=== PATIENT | male | born 1945 | race African-American/Black ===

== ENCOUNTER 2019-04-06 05:41 | Inpatient (IN) | payer OTHER ==
[~2019-04-06] VITALS: Ht 177.8 cm; Wt 108.9 kg
[2019-04-06] VITALS (30 sets, daily range): BP systolic 84–168; BP diastolic 51–90; PULSE 83–113; RESP 10–24; Ht 177.8 cm; Wt 108.9 kg
[~2019-04-06 05:41] MED LIST: HIP PAIN COCKTAIL VANCO INJ SCH
[2019-04-06] MEDS ORDERED: LACTATED RINGER'S 1,000 ML IV SCH (06:00)
[2019-04-06] MEDS ORDERED: CEFAZOLIN 1 GM/50 ML (PMX) 50 ML IVPB SCH (06:00)
--- NOTE | 2019-04-06 06:33 | HPN ---
Date/Time of Note Date/Time of Note DATE: 04/06/19 TIME: 06:32 Interval H&P Admission Note Pt. seen H&P reviewed: No system changes INDIGO CALVILLO MD Apr 06, 2019 06:33
[2019-04-06] MEDS ORDERED: POLYMYXIN B 500000 UNIT INJ ONE (07:11)
[2019-04-06] MEDS ORDERED: TOF50 PO (07:14)
[2019-04-06] MEDS ORDERED: ERGO2000 PO (07:16)
[2019-04-06] MEDS ORDERED: MELO15TA30 PO (07:16)
[2019-04-06] MEDS ORDERED: AMLO5TAB4 PO (07:17)
[2019-04-06] MEDS ORDERED: SEVOFLURANE 15 MIN ONE (07:30)
[2019-04-06] MEDS ORDERED: LANSOPRAZOLE 30 MG CAP PO ONE (07:30)
[2019-04-06] MEDS ORDERED: DEXAMETHASONE 4 MG/ML 1 ML INJ IV ONE (07:30)
[2019-04-06] MEDS ORDERED: TRANEXAMIC ACID 1GM/100ML(PMX) 100 ML PRE-OP X1 IVPB ONE (07:30)
[2019-04-06] MEDS ORDERED: oxyCODONE (CR) 10 MG TAB [oxyCONTIN] PO ONE (07:30)
[2019-04-06] MEDS ORDERED: TRANEXAMIC ACID 1GM/100ML(PMX) 100 ML INTRA-OP X1 IVPB ONE (07:30)
[2019-04-06] MEDS ORDERED: ACETAMINOPHEN 500 MG TAB PO ONE (07:30)
[2019-04-06] MEDS ORDERED: ONDANSETRON 4 MG INJ IV ONE (07:30)
--- NOTE | 2019-04-06 07:30 | PREAC ---
Date/Time of Note Date/Time of Note DATE: 04/06/19 TIME: 07:27 Anesthesia Eval and Record Evaluation Time Pre-Procedure Interview DATE: 04/06/19 TIME: 07:27 Age 74 Sex male NPO: 8 hrs Preoperative diagnosis Right Hip OA Planned procedure Right Total Hip Replacement Past Medical History Past Medical History: Includes Cardio: HTN, Dyslipidemia Pulm: Smoking Hx GI: Obesity Heme: Anemia Infection(s): Hep C (treated) Recreational drugs: Marijuana Surgery & Anesthesia Issues No known issue Meds Anticoagulation: No Beta Dat within 24 hr: No Reason Beta Dat not given: Pt. not on B-Dat Reported Medications Amlodipine Besylate* (Norvasc*) 5 Mg Tablet, 5 MG PO DAILY, TAB 04/06/19 Meloxicam* (Mobic*) 15 Mg Tablet, 15 MG PO DAILY, #30 TAB 04/06/19 Ergocalciferol (Vitamin D2) (VITAMIN D2) 2,000 Unit Tablet, 2000 UNIT PO DAILY, TAB 04/06/19 Imipramine Hcl* (Imipramine Hcl*) 50 Mg Tablet, 50 MG PO HS, TAB 04/06/19 Current Medications Lactated Ringer's 1,000 ml @ 125 mls/hr Q8H IV Last administered on 04/06/19at 07:17; Admin Dose 125 MLS/HR; Start 04/06/19 at 06:00; Stop 04/06/19 at 13:59 Cefazolin Sodium 50 ml @ 100 mls/hr PREOP IVPB ; Start 04/06/19 at 06:00; Stop 04/06/19 at 19:00 Ropivacaine/ Morphine Sulfate/ Clonidine/ Epinephrine/ Ketorolac Tromethamine/ Vancomycin HCl/ Sodium Chloride INTRA-OP INJ ; Start 04/05/19 at 15:00 Tranexamic Acid 100 ml @ 220 mls/hr PRE-OP ONCE IVPB ; Start 04/06/19 at 07:30; Stop 04/06/19 at 07:57 Tranexamic Acid 100 ml @ 200 mls/hr INTRA-OP ONCE IVPB ; Start 04/06/19 at 07:30; Stop 04/06/19 at 07:59 Oxycodone HCl (Oxycontin) 10 mg PRE-OP ONCE PO Last administered on 04/06/19at 07:17; Admin Dose 10 MG; Start 04/06/19 at 07:30; Stop 04/06/19 at 07:31 Acetaminophen (Tylenol Tab) 1,000 mg PRE-OP ONCE PO Last administered on 04/06/19at 07:18; Admin Dose 1,000 MG; Start 04/06/19 at 07:30; Stop 04/06/19 at 07:31 Lansoprazole (Prevacid) 30 mg PRE-OP ONCE PO Last administered on 04/06/19at 07:17; Admin Dose 30 MG; Start 04/06/19 at 07:30; Stop 04/06/19 at 07:31 Ondansetron HCl (Zofran Inj) 4 mg PRE-OP ONCE IV Last administered on 04/06/19at 07:17; Admin Dose 4 MG; Start 04/06/19 at 07:30; Stop 04/06/19 at 07:31 Dexamethasone (Decadron) 8 mg PRE-OP ONCE IV Last administered on 04/06/19at 07:18; Admin Dose 8 MG; Start 04/06/19 at 07:30; Stop 04/06/19 at 07:31 Meds reviewed: Yes Allergies Coded Allergies: No Known Allergy (Unverified , 04/06/19) Allergies Reviewed: Yes Labs/Studies Labs Reviewed: Reviewed by anesthesiologist test: N/A Studies: ECG (NSR), CXR (no acute disease) Pre-procedure Exam Airway: Adequate mouth opening, Adequate thyromental dist Mallampati: Mallampati II Teeth: Normal Lung: Normal Heart: Normal ASA Physical Status ASA physical status: 3 Emergency: None Planned Anesthetic General/MAC: ETT, LMA Neuraxial: Spinal Nerve block: Other (Right Fascia Iliaca) Planned Pain Management Sub-arachniod narcotics, Single shot nerve block, Parenteral pain med Pre-operative Attestations Prior to commencing anesthesia and surgery, the patient was re-evaluated, there was verification of: *The patient's identity *The results of appropriate recent lab work and preoperative vital signs *The above evaluation not changing prior to induction *Anesthetic plan, risk benefits, alternative and complications discussed with patient/family; questions answered; patient/family understands, accepts and wishes to proceed. MYRIAM PEARSON MD Apr 06, 2019 07:30
[2019-04-06] MEDS ORDERED: MIDAZOLAM 1 MG/ML 2 ML INJ ONE (07:34)
[2019-04-06] MEDS ORDERED: PROPOFOL 20 ML ONE (07:34)
[2019-04-06] MEDS ORDERED: morphine SULFATE/PF (10 MG/10 ML) INJ ONE (07:34)
[2019-04-06] MEDS ORDERED: ROCURONIUM 50 MG INJ ONE (07:34)
[2019-04-06] MEDS ORDERED: ROPIVACAINE 0.5 % 30 ML VIAL ONE (07:34)
[2019-04-06] MEDS ORDERED: TRANEXAMIC ACID 1GM/100ML(PMX) 200 ML ONE (08:36)
[2019-04-06] MEDS ORDERED: BACITRACIN 50000 UNITS INJ IRR ONE (09:01)
[2019-04-06] MEDS ORDERED: DEXAMETHASONE 4 MG/ML 5 ML INJ ONE (09:44)
[2019-04-06] MEDS ORDERED: METOCLOPRAMIDE 10 MG INJ ONE (09:44)
[2019-04-06] MEDS ORDERED: SUGAMMADEX SODIUM 200 MG/2 ML VIAL IV ONE ×2 (09:44→11:00)
[2019-04-06] MEDS ORDERED: KETOROLAC 30 MG INJ ONE (09:44)
[2019-04-06] MEDS ORDERED: CEFAZOLIN 1 GM INJ ONE (09:44)
[2019-04-06] MEDS ORDERED: ONDANSETRON 4 MG INJ ONE (09:44)
[2019-04-06] MEDS ORDERED: PHENYLephrine (100 MCG/ML) 10ML SYG ONE (09:45)
[2019-04-06] MEDS ORDERED: HETASTARCH 6% NACL 500 ML ONE (09:49)
[2019-04-06] MEDS ORDERED: ONDANSETRON 4 MG INJ IV PRN ×2 (10:00)
[2019-04-06] MEDS ORDERED: FENTAnyl 50 MCG/ML VIAL IV PRN ×2 (10:00)
[2019-04-06] MEDS ORDERED: LABETALOL HCL 20MG INJ IV PRN (10:00)
[2019-04-06] MEDS ORDERED: MEPERIDINE 25 MG INJ IV PRN (10:00)
[2019-04-06] MEDS ORDERED: HYDROCODONE/APAP (5/325) TAB PO PRN (10:00)
[2019-04-06] MEDS ORDERED: HYDROmorphONE 1 MG/5 ML IV SYRINGE IV PRN ×2 (10:00)
[2019-04-06] MEDS ORDERED: DIPHENHYDRAMINE 50 MG INJ IV PRN ×2 (10:00)
[2019-04-06] MEDS ORDERED: OXYCODONE/ACETAMINOPHEN (5/325) TAB PO PRN ×2 (10:00)
[2019-04-06] MEDS ORDERED: METOCLOPRAMIDE 10 MG INJ IV PRN (10:00)
[2019-04-06] MEDS ORDERED: KETOROLAC 30 MG INJ IV PRN (10:00)
[2019-04-06] MEDS ORDERED: NALBUPHINE HCL (10 MG/1 ML) INJ IV PRN (10:00)
[2019-04-06] MEDS ORDERED: NALOXONE (0.4 MG/ML) INJ IV PRN ×2 (10:00→11:30)
[2019-04-06] MEDS ORDERED: morphine 2 MG INJ IV PRN ×2 (10:00)
[2019-04-06] MEDS ORDERED: EPHEDrine 25 MG/5 ML SYG IV PRN (10:00)
[2019-04-06] MEDS ORDERED: ALBUMIN HUMAN 5% 250 ML IV PRN (10:00)
[2019-04-06] MEDS ORDERED: ACETAMINOPHEN 500 MG TAB PO PRN (10:00)
[2019-04-06] MEDS ORDERED: HYDROmorphONE 0.5 MG/0.5 ML SYG IV PRN ×2 (10:00)
[2019-04-06] MEDS ORDERED: hydrALAzine 20 MG INJ IV PRN (10:00)
--- NOTE | 2019-04-06 11:04 | SIPON ---
Date/Time of Note Date/Time of Note DATE: 04/06/19 TIME: 11:03 Operative Report Preoperative Diagnosis Right Hip Osteoarthritis Postoperative Diagnosis Same Operation/Procedure Performed Right Total Hip Arthroplasty Surgeon Ryan Dunbar MD education assistant MALI Dunn Anesthesia: spinal Estimated blood loss: other Transfusion Required none Specimen Bone Grafts/Implants none Complications none RYAN DUNBAR MD Apr 06, 2019 11:04
[2019-04-06] MEDS ORDERED: NA PHOSPHATE/BIPHOS 133 ML ENEMA PR PRN (11:30)
[2019-04-06] MEDS ORDERED: oxyCODONE 5 MG TAB PO PRN (11:30)
[2019-04-06] MEDS ORDERED: BISACODYL 10 MG SUPP PR PRN (11:30)
[2019-04-06] MEDS ORDERED: DOCUSATE SODIUM 100 MG CAP PO ONE (11:30)
[2019-04-06] MEDS ORDERED: SENNA/DOCUSATE NA (8.6MG/50MG) TAB PO PRN (11:30)
[2019-04-06] MEDS ORDERED: KETOROLAC 15 MG INJ IV PRN (11:30)
[2019-04-06] MEDS ORDERED: MAGNESIUM HYDROXIDE 30ML CUP PO PRN (11:30)
[2019-04-06] MEDS ORDERED: NACL 0.9% 3 ML SYG IV SCH (11:30)
[2019-04-06] MEDS: CEFAZOLIN 2 GM/50 ML (PMX) 50 ML IVPB SCH ×2 (11:30→19:40)
--- NOTE | 2019-04-06 11:38 | PAC ---
Date/Time of Note Date/Time of Note DATE: 04/06/19 TIME: 11:38 Post-Anesthesia Notes Post-Anesthesia Note Last documented vital signs Vital Signs Date Temp Pulse Resp B/P (MAP) Pulse Ox O2 O2 Flow FiO2 Time Delivery Rate 04/06/19 98.6 83 18 168/81 98 Room Air 11:38 (110) Activity: WNL Respiratory function: WNL Cardiovascular function: WNL Mental status: Baseline Pain reasonably controlled: Yes Hydration appropriate: Yes Nausea/Vomiting absent: Yes MYRIAM PEARSON MD Apr 06, 2019 11:38
[2019-04-06] MEDS: GABAPENTIN 100 MG CAP PO SCH ×2 (13:00→20:23)
--- NOTE | 2019-04-06 13:03 | CONS ---
Assessment/Plan Assessment/Plan Hospital Course (Demo Recall) 74-year-old male with comorbidities including obesity, hypertension, insomnia, and right hip osteoarthritis who underwent a right total hip arthroplasty on 04/06/2019. 1. Right hip osteoarthritis. Status post right total hip arthroplasty on 04/06/2019. Postoperative day #0. Pain management as per orthopedic surgery. Weightbearing and physical therapy as per orthopedic surgery. Anticoagulation as per orthopedic surgery. 2. Hypertension. Resume calcium channel blockers. 3. Insomnia. Resume scheduled tricyclics. 4. Obesity. BMI more than 34 kg/m. Will advise lifestyle changes. CODE STATUS: Full code. Diet: Regular diet DVT prophylaxis: As per orthopedic surgery. We will continue to follow the patient along with you. Thank you for the consult. The patient was seen in collaboration with Dr. Tee. Consultation Date/Type/Reason Admit Date/Time Apr 06, 2019 at 05:41 Date of Consultation: Apr 06, 2019 Type of Consult Medical. Reason for Consultation Medical management. Requesting Provider: INDIGO CALVILLO MD Date/Time of Note DATE: 04/06/19 TIME: 13:03 Hx of Present Illness This is a 74-year-old -[place] male with past medical history of hypertension, insomnia, and right hip osteoarthritis. The patient was brought to [facility] for elective right total hip arthroplasty. The patient underwent the surgery without any complications. The patient is being hospitalized for further monitoring. Hospitalist consult was obtained for medical management. Constitutional: no complaints Eyes: no complaints ENT: no complaints Respiratory: no complaints Cardiovascular: no complaints Gastrointestinal: no complaints Genitourinary: no complaints Musculoskeletal: bone/joint pain Skin: no complaints Neurologic: no complaints Endocrine: no complaints Lymphatic: no complaints Psychological: other (Insomnia) Immunologic: no complaints Past Medical History 1. HTN. 2. Insomnia. 3. Osteoarthritis. 4. Obesity. Home Meds Reported Medications Amlodipine Besylate* (Norvasc*) 5 Mg Tablet, 5 MG PO DAILY, TAB 04/06/19 Meloxicam* (Mobic*) 15 Mg Tablet, 15 MG PO DAILY, #30 TAB 04/06/19 Ergocalciferol (Vitamin D2) (VITAMIN D2) 2,000 Unit Tablet, 2000 UNIT PO DAILY, TAB 04/06/19 Imipramine Hcl* (Imipramine Hcl*) 50 Mg Tablet, 50 MG PO HS, TAB 04/06/19 Medications Allergies: Coded Allergies: No Known Allergy (Unverified , 04/06/19) Past Surgical History 1. Prostate surgery. Social History Lives with his family Alcohol Use: none Smoking Status: Never smoker Drug Use: none Exam/Review of Systems Exam Vitals Vital Signs Date Temp Pulse Resp B/P (MAP) Pulse Ox O2 O2 Flow FiO2 Time Delivery Rate 04/06/19 98.6 12:55 04/06/19 98 10 119/64 96 Nasal 12:42 (82) Cannula 04/06/19 3.0 12:37 Exam General: Obese, 74 year-old male lying in bed in no apparent distress. HEENT: Normocephalic, atraumatic. Eyes: Anicteric sclerae, conjunctivae clear. ENT: Nasal septum midline, oral mucosa is dry. Neck supple. Respiratory: Bilaterally diminished breath sounds. No use of accessory muscles of respiration. No adventitious breath sounds. Cardiovascular: S1, S2 heard. Regular rate and rhythm. Abdomen: Soft, nontender, and nondistended. Bowel sounds positive in all 4 quadrants. Genitourinary: Deferred. Extremities: No cyanosis, no clubbing, no edema. Peripheral pulses palpable. Right hip surgical dressing. Neurologic: Cranial nerves II through XII grossly intact. The patient is awake, alert, and oriented. Skin: Normal skin turgor. No skin rashes. Constitutional: oriented, well developed Medications Medication Current Medications Lactated Ringer's 1,000 ml @ 125 mls/hr Q8H IV Last administered on 04/06/19at 07:17; Admin Dose 125 MLS/HR; Start 04/06/19 at 06:00; Stop 04/06/19 at 13:59 Cefazolin Sodium 50 ml @ 100 mls/hr PREOP IVPB ; Start 04/06/19 at 06:00; Stop 04/06/19 at 19:00 Ropivacaine/ Morphine Sulfate/ Clonidine/ Epinephrine/ Ketorolac Tromethamine/ Vancomycin HCl/ Sodium Chloride INTRA-OP INJ Last administered on 04/06/19at 09:01; Admin Dose 116.3 ML; Start 04/05/19 at 15:00; Stop 04/06/19 at 16:00 Hydromorphone HCl (Dilaudid) 0.2 mg Q2H PRN IV .PAIN 1-5; Start 04/06/19 at 10:00 Hydromorphone HCl (Dilaudid) 0.4 mg Q2H PRN IV .PAIN 6-10; Start 04/06/19 at 10:00 Morphine Sulfate (morphine) 2 mg Q2H PRN IV .PAIN 1-5; Start 04/06/19 at 10:00 Morphine Sulfate (morphine) 4 mg Q2H PRN IV .PAIN 6-10; Start 04/06/19 at 10:00 Ketorolac Tromethamine (Toradol) 30 mg Q6H PRN IV .PAIN 6-10; Start 04/06/19 at 10:00; Stop 04/09/19 at 09:59 Acetaminophen (Tylenol Tab) 500 mg Q4H PRN PO .PAIN 1-3; Start 04/06/19 at 10:00 Acetaminophen/ Hydrocodone Bitart ([place] (5/325)) 1 tab Q4H PRN PO .PAIN 4-6; Start 04/06/19 at 10:00 Diphenhydramine HCl (Benadryl) 25 mg Q4H PRN IV .PRURITUS; Start 04/06/19 at 10:00 Nalbuphine HCl (Nubain) 10 mg Q4H PRN IV .PRURITUS; Start 04/06/19 at 10:00 Ondansetron HCl (Zofran Inj) 4 mg Q6H PRN IV .NAUSEA/VOMITING; Start 04/06/19 at 10:00 Naloxone HCl (Narcan) 0.2 mg Q2M PRN IV .RESP RATE; Start 04/06/19 at 10:00 Miscellaneous Information (* Miscellaneous Pharmacy Order) DURAMORPH: 0.1 MG SPI... GIVEN NEURAXIAL XX ; Start 04/06/19 at 10:00 Hydromorphone HCl (Dilaudid) 0.2 mg PACU PRN IV MILD PAIN 1-3; Start 04/06/19 at 10:00; Stop 04/06/19 at 15:00 Hydromorphone HCl (Dilaudid) 0.4 mg PACU PRN IV MOD PAIN 4-6; Start 04/06/19 at 10:00; Stop 04/06/19 at 15:00 Fentanyl (Sublimaze) 25 mcg PACU ORDER PRN IV MILD PAIN 1-3; Start 04/06/19 at 10:00; Stop 04/06/19 at 15:00 Fentanyl (Sublimaze) 50 mcg PACU ORDER PRN IV MOD PAIN 4-6; Start 04/06/19 at 10:00; Stop 04/06/19 at 15:00 Oxycodone/ Acetaminophen (Percocet (5/ 325)) 1 tab PACU ORDER PRN PO .PAIN 1-5; Start 04/06/19 at 10:00; Stop 04/06/19 at 15:00 Oxycodone/ Acetaminophen (Percocet (5/ 325)) 2 tab PACU ORDER PRN PO .PAIN 6-10; Start 04/06/19 at 10:00; Stop 04/06/19 at 15:00 Ondansetron HCl (Zofran Inj) 4 mg PACU ORDER PRN IV NAUSEA/VOMITING; Start 04/06/19 at 10:00; Stop 04/06/19 at 15:00 Metoclopramide HCl (Reglan) 10 mg PACU ORDER PRN IV NAUSEA/VOMITING; Start 04/06/19 at 10:00; Stop 04/06/19 at 15:00 Labetalol HCl (Labetalol) 5 mg PACU ORDER PRN IV HIGH BLOOD PRESSURE; Start 04/06/19 at 10:00; Stop 04/06/19 at 17:00 Hydralazine HCl (Apresoline) 5 mg PACU ORDER PRN IV HIGH BLOOD PRESSURE; Start 04/06/19 at 10:00; Stop 04/06/19 at 15:00 Ephedrine Sulfate 5 mg PACU ORDER PRN IV BLOOD PRESSURE SUPPORT; Start 04/06/19 at 10:00; Stop 04/06/19 at 15:00 Albumin Human 250 ml @ 750 mls/hr PACU ORDER PRN IV BP SUPPORT; Start 04/06/19 at 10:00; Stop 04/06/19 at 15:00 Meperidine HCl (Demerol) 25 mg PACU ORDER PRN IV .RIGORS; Start 04/06/19 at 10:00; Stop 04/06/19 at 15:00 Diphenhydramine HCl (Benadryl) 25 mg PACU ORDER PRN IV .PRURITUS; Start 04/06/19 at 10:00; Stop 04/06/19 at 15:00 Oxycodone HCl (Roxicodone) 5 mg Q4H PRN PO .PAIN; Start 04/06/19 at 11:30 Ondansetron HCl (Zofran Inj) 4 mg Q4H PRN IV NAUSEA/VOMITING; Start 04/07/19 at 11:30 Cefazolin Sodium/ Dextrose 50 ml @ 100 mls/hr Q8H IVPB Last administered on 04/06/19at 11:30; Admin Dose 100 MLS/HR; Start 04/06/19 at 11:30; Stop 04/07/19 at 03:59 Celecoxib (Celebrex) 100 mg BID PO ; Start 04/07/19 at 09:00 Gabapentin (Neurontin) 100 mg TID PO ; Start 04/06/19 at 13:00 Pantoprazole (Protonix Tab) 40 mg DAILY@06 PO ; Start 04/07/19 at 06:00 Docusate Sodium (Colace) 200 mg BID PO ; Start 04/07/19 at 09:00; Stop 04/09/19 at 21:01 Simethicone (Mylicon) 80 mg TID PRN PO .GAS; Start 04/06/19 at 11:30 Senna/Docusate Sodium (Senokot-S) 2 tab BID PRN PO .CONSTIPATION; Start 04/06/19 at 11:30 Magnesium Hydroxide (Milk Of Mag) 30 ml HS PRN PO .CONSTIPATION; Start 04/06/19 at 11:30 Bisacodyl (Dulcolax Supp) 10 mg DAILY PRN [place] .CONSTIPATION; Start 04/06/19 at 11:30 Sodium Biphosphate/ Sodium Phosphate (Fleet Enema) 133 ml DAILY PRN [place] .CONSTIPATION; Start 04/06/19 at 11:30 Ketorolac Tromethamine (Toradol) 15 mg Q6H PRN IV .PAIN; Start 04/06/19 at 11:30 Naloxone HCl (Narcan) 0.2 mg Q2M PRN IV .RESP RATE; Start 04/06/19 at 11:30 IV Flush (NS 3 ml) 3 ml per protocol IV ; Start 04/06/19 at 11:30 Aspirin (Halfprin) 81 mg BID PO ; Start 04/07/19 at 09:00 HONEY MADRID NP Apr 06, 2019 13:03
--- NOTE | 2019-04-06 14:21 | OPR ---
Date/Time of Note Date/Time of Note DATE: 04/06/19 TIME: 14:18 Operative Report Free Text/Dictation DATE OF OPERATION: April 06, 2019 PREOPERATIVE DIAGNOSIS: Right hip osteoarthritis. POSTOPERATIVE DIAGNOSIS: Right hip osteoarthritis. PROCEDURES PERFORMED: 1. Right total hip arthroplasty. CPT code 27157. 2. Computer assisted navigational procedure, CPT code 73552. 3. Interpretation of AP Pelvis x-ray. 4. Interpretation of right hip, 2 views. SURGEON: Indigo Dunbar. COMPLAINT ADJUSTER: 1. MALI Dunn ANESTHESIOLOGIST: Dr. Bryant ANESTHESIA: Spinal ESTIMATED BLOOD LOSS: 300 mL. COMPLICATIONS: None. SPECIMENS: Resected bone. DISPOSITION: PACU in stable condition. IMPLANT USED: A DePuy Corail size 12 standard stem, 36/+1.5 delta ceramic femoral head, 56mm Atlantic Cup, 36 mm liner, 20 mm cancellous screw. COMPLICATIONS: None. DISPOSITION: To PACU in stable condition. INDICATION FOR PROCEDURE: This is an 74 year-old male with endstage osteoarthritis of the right hip who had failed nonoperative management. Risks, benefits, alternatives of surgical intervention were discussed with the patient and informed consent was obtained. The risks of surgery include but are not limited to infection, deep venous thrombosis, pulmonary embolism, leg length discrepancy, fracture, damage to neurovascular structures requiring repair, loosening of the prosthesis, wear of prosthesis, need for revision surgery, heart attack, stroke, need for blood transfusion, risks associated with anesthesia and even . DESCRIPTION OF PROCEDURE: The patient was met in the preoperative suite and the correct operative site was confirmed and marked. Patient was then brought into operating room. After induction of general anesthesia, the patient was placed in the supine position on the table. The right lower extremity was prepped and draped in the usual sterile fashion. Before starting, a timeout was taken to identify the correct operative site, the patients name and medical record number and to confirm the preoperative antibiotics consisting of 1 gram of IV Ancef, along with 1 gram of tranexamic acid were administered. At this point, an 8 cm incision was made approximately 2 cm lateral and 1 cm distal to the ASIS. The incision was carried down to the fascia. The fascia was then incised. Then, 2 Allis clamps were placed. The interval was then bluntly developed and the tensor fascia jesus was then retracted laterally. The lateral circumflex vessels were identified and coagulated. The anterior capsule was then visualized and a capsulotomy was performed. At this point, markings were made for the napkin ring osteotomy of the femoral neck. Using the saw the initial osteotomy was then made and completed with the use of an osteotome. A Lovely was then used to remove the napkin ring and a corkscrew was then placed in the femoral head and the head was then removed. The head was sized to 54 mm. Sequential reaming was begun with a 47 mm reamer, going up to a 55 mm reamer. A trial 56 mm cup was then impacted and the radlink was then used to determine the appropriate anteversion and abduction of the cup. The cup was noted to be in approximately 44 degrees of inclination, and 19 degrees of anteversion. The trial was then removed. The appropriate size cup was then placed and again the radlink was used to determine the inclination and anteversion, and was noted be unchanged. At this point, a 20 mm screw was then placed in the posterior superior quadrant. The 36 mm liner was then impacted into place and the final acetabular x-rays were taken which again demonstrated the cup to be in appropriate abduction and anteversion. At this point, the femoral lift was then used and the leg was then placed in external rotation, extension, and adduction. Retractors were placed and the femoral releases were performed using a box osteotome followed by a canal finder. Sequential broaching was begun with a 8 broach going up to a size 12 broach. The trial 12 mm standard offset stem along with a 36/+1.5 trial head and neck were placed. The hip was then reduced and taken through range of motion, noted to be stable in extension and external rotation of up to 110 degrees. AP x-rays of the pelvis and right hip, 2 view x-rays were taken. The x-rays demonstrated the prosthesis to be in the correct position with equal leg l engths. The trial components were then removed. The appropriate sized components were then placed. The hip was again reduced with unchanged stability and equal leg lengths and no fractures were seen. The hip was again taken through range of motion and noted to be stable to extension and external rotation. The wound was then thoroughly irrigated. The capsule and the fascia were closed using #1 Stratafix. The subcutaneous tissue was closed using 2-0 Vicryl and the skin with 4-0 Monocryl in subcuticular fashion and Steri-Strips were applied. There were no complications. Patient was awakened and taken to postoperative care unit in stable condition. Prior to transfer, the patient was noted to have equal leg lengths and a palpable dorsalis pedis pulse. POSTOPERATIVE CARE: Patient will be weightbearing as tolerated. Patient will work with physical therapy, and receive multimodal pain management.. Patient will receive two additional doses of IV Ancef along with aspirin 81 mg p.o. b.i.d. for 6 weeks. Patient will have SCDs while in the hospital. Upon discharge, patient will follow up in my office within 2 weeks postoperatively. INDIGO DUNBAR MD Apr 06, 2019 14:21
[2019-04-06] MEDS ORDERED: SOD CHLORIDE 0.9% 1,000 ML IV ONE (16:00)
[2019-04-06] MEDS: IMIPRAMINE 25 MG TAB PO SCH (20:23)
[2019-04-07 02:48] VITALS: BP 130/70; PULSE 92; RESP 12
[2019-04-07] MEDS: CEFAZOLIN 2 GM/50 ML (PMX) 50 ML IVPB SCH (03:55)
[2019-04-07] MEDS: PANTOPRAZOLE (EC) 40 MG TAB PO SCH (05:26)
[2019-04-07 07:36] VITALS: BP 104/59; PULSE 102; RESP 18
[2019-04-07] MEDS: AMLODIPINE 5 MG TAB PO SCH (09:00)
[2019-04-07] MEDS: DOCUSATE SODIUM 100 MG CAP PO SCH ×2 (09:06→21:54)
[2019-04-07] MEDS: CELECOXIB 100 MG CAP PO SCH ×2 (09:06→21:54)
[2019-04-07] MEDS: ASPIRIN (EC) 81 MG TAB PO SCH ×2 (09:06→21:54)
[2019-04-07] MEDS: GABAPENTIN 100 MG CAP PO SCH ×3 (09:06→21:54)
--- NOTE | 2019-04-07 09:58 | CONS ---
Assessment/Plan Assessment/Plan Hospital Course (Demo Recall) SUBJECTIVE: Continues to have minimal right hip pain. Had some difficulty in urination yesterday. Currently denies any problems urination. OBJECTIVE: Physical Exam General: Obese, 74 year-old male lying in bed in no apparent distress. HEENT: Normocephalic, atraumatic. Eyes: Anicteric sclerae, conjunctivae clear. ENT: Nasal septum midline, oral mucosa is dry. Neck supple. Respiratory: Bilaterally diminished breath sounds. No use of accessory muscles of respiration. No adventitious breath sounds. Cardiovascular: S1, S2 heard. Regular rate and rhythm. Abdomen: Soft, nontender, and nondistended. Bowel sounds positive in all 4 quadrants. Genitourinary: Deferred. Extremities: No cyanosis, no clubbing, no edema. Peripheral pulses palpable. Right hip surgical dressing. Neurologic: Cranial nerves II through XII grossly intact. The patient is awake, alert, and oriented. Skin: Normal skin turgor. No skin rashes. Labs & Vitals per chart ASSESSMENT & PLAN 74-year-old male with comorbidities including obesity, hypertension, insomnia, and right hip osteoarthritis who underwent a right total hip arthroplasty on 04/06/2019. 1. Right hip osteoarthritis. Status post right total hip arthroplasty on 04/06/2019. Postoperative day #1. Pain management as per orthopedic surgery. Weightbearing and physical therapy as per orthopedic surgery. Anticoagulation as per orthopedic surgery. 2. Hypertension. Continue calcium channel blockers. 3. Insomnia. Continue scheduled tricyclics. 4. Normocytic anemia. Etiology unclear. Monitor H&H closely. Blood transfusion will be deferred to orthopedic surgery. 5. Sinus tachycardia. Etiology could be multifactorial including underlying pain and anemia. Monitor. 6. Obesity. BMI more than 34 kg/m. Advised lifestyle changes. CODE STATUS: Full code. Diet: Regular diet DVT prophylaxis: As per orthopedic surgery. We will continue to follow the patient along with you. Thank you for the consult. The patient was seen in collaboration with Dr. Tee. Consultation Date/Type/Reason Admit Date/Time Apr 06, 2019 at 05:41 Initial Consult Date 04/06/19 Type of Consult Medical. Reason for Consultation Medical Management. Requesting Provider: INDIGO CALVILLO MD Date/Time of Note DATE: 04/07/19 TIME: 09:54 Exam/Review of Systems Exam Vitals Vital Signs Date Temp Pulse Resp B/P (MAP) Pulse Ox O2 O2 Flow FiO2 Time Delivery Rate 04/07/19 97.6 102 18 104/59 93 Nasal 07:36 (74) Cannula 04/07/19 3.0 02:48 Intake and Output 04/06/19 04/06/19 04/07/19 1515:00 23:00 07:00 IntakeIntake Total 2000 ml 600 ml 290 ml OutputOutput Total 200 ml 467 ml 900 ml BalanceBalance 1800 ml 133 ml -610 ml Results Result Diagram: 04/07/19 0431 04/07/19 0431 Results 24hrs Laboratory Tests Test 04/07/19 04:31 04/07/19 06:59 White Blood Count 13.7 H Red Blood Count 2.66 L Hemoglobin 7.5 L Hematocrit 23.9 L Mean Corpuscular Volume 89.8 Mean Corpuscular Hemoglobin 28.2 L Mean Corpuscular Hemoglobin Concent 31.4 L Red Cell Distribution Width 16.6 H Platelet Count 152 Mean Platelet Volume 12.0 H Immature Granulocytes % 0.700 H Neutrophils % 79.8 H Lymphocytes % 11.9 L Monocytes % 7.5 Eosinophils % 0.0 Basophils % 0.1 Nucleated Red Blood Cells % 0.0 Immature Granulocytes # 0.100 H Neutrophils # 11.0 H Lymphocytes # 1.6 Monocytes # 1.0 H Eosinophils # 0.0 Basophils # 0.0 Nucleated Red Blood Cells # 0.0 Prothrombin Time 15.6 H Prothrombin Time Ratio 1.2 INR International Normalized Ratio 1.23 Sodium Level 140 Potassium Level 4.5 Chloride Level 108 Carbon Dioxide Level 26 Anion Gap 6 Blood Urea Nitrogen 16 Creatinine 1.08 Est Glomerular Filtrat Rate mL/min Glucose Level 185 Calcium Level 7.7 L Lab Scanned Report REFERENCE LAB Medications Medication Current Medications Hydromorphone HCl (Dilaudid) 0.2 mg Q2H PRN IV .PAIN 1-5; Start 04/06/19 at 10:00 Hydromorphone HCl (Dilaudid) 0.4 mg Q2H PRN IV .PAIN 6-10; Start 04/06/19 at 10:00 Morphine Sulfate (morphine) 2 mg Q2H PRN IV .PAIN 1-5; Start 04/06/19 at 10:00 Morphine Sulfate (morphine) 4 mg Q2H PRN IV .PAIN 6-10; Start 04/06/19 at 10:00 Ketorolac Tromethamine (Toradol) 30 mg Q6H PRN IV .PAIN 6-10; Start 04/06/19 at 10:00; Stop 04/09/19 at 09:59 Acetaminophen (Tylenol Tab) 500 mg Q4H PRN PO .PAIN 1-3; Start 04/06/19 at 10:00 Acetaminophen/ Hydrocodone Bitart ([place] (5/325)) 1 tab Q4H PRN PO .PAIN 4-6 Last administered on 04/06/19at 19:34; Admin Dose 1 TAB; Start 04/06/19 at 10:00 Diphenhydramine HCl (Benadryl) 25 mg Q4H PRN IV .PRURITUS; Start 04/06/19 at 10:00 Nalbuphine HCl (Nubain) 10 mg Q4H PRN IV .PRURITUS; Start 04/06/19 at 10:00 Ondansetron HCl (Zofran Inj) 4 mg Q6H PRN IV .NAUSEA/VOMITING; Start 04/06/19 at 10:00 Naloxone HCl (Narcan) 0.2 mg Q2M PRN IV .RESP RATE; Start 04/06/19 at 10:00 Miscellaneous Information (* Miscellaneous Pharmacy Order) DURAMORPH: 0.1 MG SPI... GIVEN NEURAXIAL XX ; Start 04/06/19 at 10:00 Oxycodone HCl (Roxicodone) 5 mg Q4H PRN PO .PAIN; Start 04/06/19 at 11:30 Ondansetron HCl (Zofran Inj) 4 mg Q4H PRN IV NAUSEA/VOMITING; Start 04/07/19 at 11:30 Celecoxib (Celebrex) 100 mg BID PO Last administered on 04/07/19at 09:06; Admin Dose 100 MG; Start 04/07/19 at 09:00 Gabapentin (Neurontin) 100 mg TID PO Last administered on 04/07/19at 09:06; Admi n Dose 100 MG; Start 04/06/19 at 13:00 Pantoprazole (Protonix Tab) 40 mg DAILY@06 PO Last administered on 04/07/19at 05:26; Admin Dose 40 MG; Start 04/07/19 at 06:00 Docusate Sodium (Colace) 200 mg BID PO Last administered on 04/07/19at 09:06; Admin Dose 200 MG; Start 04/07/19 at 09:00; Stop 04/09/19 at 21:01 Simethicone (Mylicon) 80 mg TID PRN PO .GAS; Start 04/06/19 at 11:30 Senna/Docusate Sodium (Senokot-S) 2 tab BID PRN PO .CONSTIPATION; Start 04/06/19 at 11:30 Magnesium Hydroxide (Milk Of Mag) 30 ml HS PRN PO .CONSTIPATION; Start 04/06/19 at 11:30 Bisacodyl (Dulcolax Supp) 10 mg DAILY PRN [place] .CONSTIPATION; Start 04/06/19 at 11:30 Sodium Biphosphate/ Sodium Phosphate (Fleet Enema) 133 ml DAILY PRN [place] .CONSTIPATION; Start 04/06/19 at 11:30 Ketorolac Tromethamine (Toradol) 15 mg Q6H PRN IV .PAIN; Start 04/06/19 at 11:30 Naloxone HCl (Narcan) 0.2 mg Q2M PRN IV .RESP RATE; Start 04/06/19 at 11:30 IV Flush (NS 3 ml) 3 ml per protocol IV ; Start 04/06/19 at 11:30 Aspirin (Halfprin) 81 mg BID PO Last administered on 04/07/19at 09:06; Admin Dose 81 MG; Start 04/07/19 at 09:00 Amlodipine Besylate (Norvasc) 5 mg DAILY PO ; Start 04/07/19 at 09:00 Imipramine HCl (Tofranil) 50 mg HS PO Last administered on 04/06/19at 20:23; Admin Dose 50 MG; Start 04/06/19 at 21:00 HONEY MADRID NP Apr 07, 2019 09:58
[2019-04-07] MEDS ORDERED: ONDANSETRON 4 MG INJ IV PRN (11:30)
[2019-04-07 12:30] VITALS: BP 112/59; PULSE 109; RESP 19
[2019-04-07] MEDS: HYDROCODONE/APAP (5/325) TAB PO PRN (19:40)
[2019-04-07 20:29] VITALS: BP 101/69; PULSE 111; RESP 20
[2019-04-07] MEDS: IMIPRAMINE 25 MG TAB PO SCH (21:54)
[2019-04-08 02:23] VITALS: BP 108/63; PULSE 100; RESP 17
[2019-04-08] MEDS: HYDROCODONE/APAP (5/325) TAB PO PRN ×3 (04:35→18:32)
[2019-04-08] MEDS: PANTOPRAZOLE (EC) 40 MG TAB PO SCH (06:00)
[2019-04-08 07:28] VITALS: BP 101/68; PULSE 92; RESP 19
[2019-04-08] MEDS: GABAPENTIN 100 MG CAP PO SCH ×2 (08:40→13:50)
[2019-04-08] MEDS: DOCUSATE SODIUM 100 MG CAP PO SCH (08:40)
[2019-04-08] MEDS: AMLODIPINE 5 MG TAB PO SCH (08:40)
[2019-04-08] MEDS: ASPIRIN (EC) 81 MG TAB PO SCH (08:40)
[2019-04-08] MEDS: CELECOXIB 100 MG CAP PO SCH (08:40)
--- NOTE | 2019-04-08 09:53 | CONS ---
Assessment/Plan Assessment/Plan Hospital Course (Demo Recall) SUBJECTIVE: Continues to have minimal right hip pain. OBJECTIVE: Physical Exam General: Obese, 74 year-old male lying in bed in no apparent distress. HEENT: Normocephalic, atraumatic. Eyes: Anicteric sclerae, conjunctivae clear. ENT: Nasal septum midline, oral mucosa is dry. Neck supple. Respiratory: Bilaterally diminished breath sounds. No use of accessory muscles of respiration. No adventitious breath sounds. Cardiovascular: S1, S2 heard. Regular rate and rhythm. Abdomen: Soft, nontender, and nondistended. Bowel sounds positive in all 4 quadrants. Genitourinary: Deferred. Extremities: No cyanosis, no clubbing, no edema. Peripheral pulses palpable. Right hip surgical dressing. Neurologic: Cranial nerves II through XII grossly intact. The patient is awake, alert, and oriented. Skin: Normal skin turgor. No skin rashes. Labs & Vitals per chart ASSESSMENT & PLAN 74-year-old male with comorbidities including obesity, hypertension, insomnia, and right hip osteoarthritis who underwent a right total hip arthroplasty on 04/06/2019. 1. Right hip osteoarthritis. Status post right total hip arthroplasty on 04/06/2019. Postoperative day #2. Pain management as per orthopedic surgery. Weightbearing and physical therapy as per orthopedic surgery. Anticoagulation as per orthopedic surgery. 2. Hypertension. Continue calcium channel blockers. 3. Insomnia. Continue scheduled tricyclics. 4. Normocytic anemia. Etiology unclear. Monitor H&H closely. 1 unit of PRBC transfusion ordered. 5. Sinus tachycardia. Etiology could be multifactorial including underlying pain and anemia. Monitor. 6. Diabetes mellitus type 2. Hemoglobin A1c 6.9 (on blood before the patient received blood transfusion). ?Newly diagnosed. Monitor glycemic trends. 7. Obesity. BMI more than 34 kg/m. Advised lifestyle changes. CODE STATUS: Full code. Diet: Regular diet DVT prophylaxis: As per orthopedic surgery. We will continue to follow the patient along with you. Thank you for the consult. The patient was seen in collaboration with Dr. Tee. Consultation Date/Type/Reason Admit Date/Time Apr 06, 2019 at 05:41 Initial Consult Date 04/06/19 Type of Consult Medical. Reason for Consultation Medical management. Requesting Provider: INDIGO CALVILLO MD Date/Time of Note DATE: 04/08/19 TIME: 09:50 Exam/Review of Systems Exam Vitals Vital Signs Date Temp Pulse Resp B/P (MAP) Pulse Ox O2 O2 Flow FiO2 Time Delivery Rate 04/08/19 98.1 92 19 101/68 98 07:28 (79) 04/08/19 Room Air 02:23 04/07/19 3.0 02:48 Intake and Output 04/07/19 04/07/19 04/08/19 1515:00 23:00 07:00 IntakeIntake Total 540 ml 240 ml 280 ml OutputOutput Total 1200 ml 400 ml 850 ml BalanceBalance -660 ml -160 ml -570 ml Results Result Diagram: 04/08/19 0430 04/08/19 0430 Results 24hrs Laboratory Tests Test 04/08/19 04:30 White Blood Count 11.3 H Red Blood Count 2.36 L Hemoglobin 6.8 *L Hematocrit 21.1 L Mean Corpuscular Volume 89.4 Mean Corpuscular Hemoglobin 28.8 L Mean Corpuscular Hemoglobin Concent 32.2 Red Cell Distribution Width 17.2 H Platelet Count 144 Mean Platelet Volume 12.2 H Immature Granulocytes % 1.200 H Neutrophils % 58.1 Segmented Neutrophils % (Manual) 48 Band Neutrophils % (Manual) 4 Lymphocytes % 31.8 Lymphocytes % (Manual) 40 Reactive Lymphocytes % (Manual) 4 H Monocytes % 8.8 Monocytes % (Manual) 4 Eosinophils % 0.0 Basophils % 0.1 Nucleated Red Blood Cells % 0.0 Immature Granulocytes # 0.140 H Neutrophils # 6.6 Neutrophils # (Manual) 5.5 Band Neutrophils # 0.4 Lymphocytes (Manual) 4.5 H Lymphocytes # 3.6 H Reactive Lymphocytes # 0.4 H Monocytes # 1.0 H Monocytes # (Manual) 0.4 Eosinophils # 0.0 Basophils # 0.0 Nucleated Red Blood Cells # 0.0 Platelet Estimate NORMAL Giant Platelets 2 H Polychromasia 1+ Anisocytosis 1+ Prothrombin Time 14.5 Prothrombin Time Ratio 1.1 INR International Normalized Ratio 1.12 Sodium Level 138 Potassium Level 3.9 Chloride Level 106 Carbon Dioxide Level 29 Anion Gap 3 L Blood Urea Nitrogen 18 Creatinine 1.01 Est Glomerular Filtrat Rate mL/min Glucose Level 151 Calcium Level 8.3 L Medications Medication Current Medications Hydromorphone HCl (Dilaudid) 0.2 mg Q2H PRN IV .PAIN 1-5; Start 04/06/19 at 10:00 Hydromorphone HCl (Dilaudid) 0.4 mg Q2H PRN IV .PAIN 6-10; Start 04/06/19 at 10:00 Morphine Sulfate (morphine) 2 mg Q2H PRN IV .PAIN 1-5; Start 04/06/19 at 10:00 Morphine Sulfate (morphine) 4 mg Q2H PRN IV .PAIN 6-10; Start 04/06/19 at 10:00 Ketorolac Tromethamine (Toradol) 30 mg Q6H PRN IV .PAIN 6-10; Start 04/06/19 at 10:00; Stop 04/09/19 at 09:59 Acetaminophen (Tylenol Tab) 500 mg Q4H PRN PO .PAIN 1-3; Start 04/06/19 at 10:00 Acetaminophen/ Hydrocodone Bitart ([place] (5/325)) 1 tab Q4H PRN PO .PAIN 4-6 Last administered on 04/06/19at 19:34; Admin Dose 1 TAB; Start 04/06/19 at 10:00 Diphenhydramine HCl (Benadryl) 25 mg Q4H PRN IV .PRURITUS; Start 04/06/19 at 10:00 Nalbuphine HCl (Nubain) 10 mg Q4H PRN IV .PRURITUS; Start 04/06/19 at 10:00 Ondansetron HCl (Zofran Inj) 4 mg Q6H PRN IV .NAUSEA/VOMITING; Start 04/06/19 at 10:00 Naloxone HCl (Narcan) 0.2 mg Q2M PRN IV .RESP RATE; Start 04/06/19 at 10:00 Miscellaneous Information (* Miscellaneous Pharmacy Order) DURAMORPH: 0.1 MG SPI... GIVEN NEURAXIAL XX ; Start 04/06/19 at 10:00 Oxycodone HCl (Roxicodone) 5 mg Q4H PRN PO .PAIN Last administered on 04/07/19at 16:49; Admin Dose 5 MG; Start 04/06/19 at 11:30 Ondansetron HCl (Zofran Inj) 4 mg Q4H PRN IV NAUSEA/VOMITING; Start 04/07/19 at 11:30 Celecoxib (Celebrex) 100 mg BID PO Last administered on 04/08/19 08:40; Admin Dose 100 MG; Start 04/07/19 at 09:00 Gabapentin (Neurontin) 100 mg TID PO Last administered on 04/08/19 08:40; Admin Dose 100 MG; Start 04/06/19 at 13:00 Pantoprazole (Protonix Tab) 40 mg DAILY@06 PO Last administered on 04/07/19 05:26; Admin Dose 40 MG; Start 04/07/19 at 06:00 Docusate Sodium (Colace) 200 mg BID PO Last administered on 04/08/19 08:40; Admin Dose 200 MG; Start 04/07/19 at 09:00; Stop 04/09/19 at 21:01 Simethicone (Mylicon) 80 mg TID PRN PO .GAS; Start 04/06/19 at 11:30 Senna/Docusate Sodium (Senokot-S) 2 tab BID PRN PO .CONSTIPATION; Start 04/06/19 at 11:30 Magnesium Hydroxide (Milk Of Mag) 30 ml HS PRN PO .CONSTIPATION; Start 04/06/19 at 11:30 Bisacodyl (Dulcolax Supp) 10 mg DAILY PRN [place] .CONSTIPATION; Start 04/06/19 at 11:30 Sodium Biphosphate/ Sodium Phosphate (Fleet Enema) 133 ml DAILY PRN [place] .CONSTIPATION; Start 04/06/19 at 11:30 Ketorolac Tromethamine (Toradol) 15 mg Q6H PRN IV .PAIN Last administered on 04/08/19 08:41; Admin Dose 15 MG; Start 04/06/19 at 11:30 Naloxone HCl (Narcan) 0.2 mg Q2M PRN IV .RESP RATE; Start 04/06/19 at 11:30 IV Flush (NS 3 ml) 3 ml per protocol IV ; Start 04/06/19 at 11:30 Aspirin (Halfprin) 81 mg BID PO Last administered on 04/08/19 08:40; Admin Dose 81 MG; Start 04/07/19 at 09:00 Amlodipine Besylate (Norvasc) 5 mg DAILY PO Last administered on 04/08/19 08:40; Admin Dose 5 MG; Start 04/07/19 at 09:00 Imipramine HCl (Tofranil) 50 mg HS PO Last administered on 7/11/19at 21:54; Admin Dose 50 MG; Start 04/06/19 at 21:00 Acetaminophen/ Hydrocodone Bitart ([place] (5/325)) 2 tab Q4H PRN PO PAIN LEVEL 7-10 Last administered on 04/08/19at 09:18; Admin Dose 2 TAB; Start 04/07/19 at 17:00 HONEY MADRID NP Apr 08, 2019 09:53
[2019-04-08] MEDS ORDERED: HYDR-3601 PO (14:14)
[2019-04-08] MEDS ORDERED: ASPI-1044 PO (14:29)
[2019-04-08 15:34] VITALS: BP 11/58; PULSE 88; RESP 20
== END 2019-04-08 19:01 | disposition home or self-care (01) | DRG 470 ==
LOC: REC 05:41 → EDSTATUS 07:30 → MS1 13:10
PROVIDERS: ADMIT Orthopaedic Surgery Adult Reconstructive Orthopaedic Surgery; ATTEND Orthopaedic Surgery Adult Reconstructive Orthopaedic Surgery
PROC: 0SR903Z Replacement of Right Hip Joint with Ceramic Synthetic Substitute, Open Approach (ICD-10-PCS; principal; 2019-04-06 07:30)
DX: M16.11 Unilateral primary osteoarthritis, right hip (principal); I10 Essential (primary) hypertension; E78.5 Hyperlipidemia, unspecified; E66.9 Obesity, unspecified; Z68.34 Body mass index [BMI] 34.0-34.9, adult; Z87.891 Personal history of nicotine dependence; G47.00 Insomnia, unspecified; D64.9 Anemia, unspecified; R00.0 Tachycardia, unspecified
CPT/HCPCS: 36430; 72170; 73500; 73530; 80048; 80061; 82728; 83036; 83540; 85025; 85610; 86644; 86850; 86900; 86901; 86920; 88304; 88311; 97116; 97162; 97167; 97530; 97535; A4310; C1713; C1776; J0690; J1100; J1885; J2250; J2274; J2370; J2405; J2765; J2795; J7030; J7120; P9016; P9045